=== PATIENT | male | born 1960 | race Hispanic/Latino ===

== ENCOUNTER 2018-02-13 15:34 | Inpatient (IN) | payer MEDICARE ==
[~2018-02-13] VITALS: Ht 175.3 cm; Wt 92.0 kg
[2018-02-13] MEDS ORDERED: ONDANSETRON HCL MDV 20ML 2 MG/ML VIAL ONE (15:44)
[2018-02-13] MEDS ORDERED: SODIUM CHLORIDE 0.9% 1000ML 1,000 ML IV ONE ×2 (15:44→19:49)
[2018-02-13 16:08] LABS: BASOPHILS % (AUTO) 0.6 % (0.0-5.0); EOSINOPHILS % (AUTO) 0.9 % (0.0-8.0); LYMPHOCYTES % (AUTO) 13.3 % (21.0-51.0); MEAN CORPUSCULAR HEMOGLOBIN 33.1 pg (27.0-33.0); MEAN CORPUSCULAR HGB CONC 34.8 g/dL (32.0-36.0); MEAN CORPUSCULAR VOLUME 95.3 fL (79-99); MONOCYTES % (AUTO) 5.6 % (3.0-13.0); NEUTROPHILS % (AUTO) 79.6 % (40.0-77.0); PLATELET COUNT (AUTO) 225 K/uL (130-400); RED BLOOD CELL COUNT(AUTO) 5.04 MIL/uL (4.50-6.20); RED CELL DISTRIBUTION WIDTH 12.7 % (11.0-15.5); WHITE BLOOD COUNT (AUTO) 12.9 K/uL (4.8-10.8)
[2018-02-13 16:14] LABS: INR 0.9 (0.85-1.15); PARTIAL THROMBOPLASTIN TIME 24.7 SEC (26.3-35.5); PROTHROMBIN TIME 9.5 SEC (9.6-11.6)
[2018-02-13 16:27] LABS: ALBUMIN 3.8 g/dL (3.5-5.0); BILIRUBIN,DIRECT 0.1 mg/dL (0.0-0.3); BILIRUBIN,TOTAL 0.7 mg/dL (0.2-1.0); CREATININE 1.6 mg/dL (0.5-1.5); TOTAL PROTEIN, SERUM 8.2 g/dL (6.0-8.3)
[2018-02-13] MEDS ORDERED: INSULIN HUMULIN R 100 UNIT/ML 3ML ONE ×2 (17:04→20:37)
[2018-02-13 17:16] LABS: APPEARANCE,URINE Clear (CLEAR); BILIRUBIN,URINE Negative (NEGATIVE); COLOR,URINE Yellow (YELLOW); GLUCOSE, URINE (UA) >=1000 mg/dL (NEGATIVE); KETONES,URINE Negative (NEGATIVE); LEUKOCYTE ESTERASE ,URINE Negative (NEGATIVE); NITRATE,URINE Negative (NEGATIVE); OCCULT BLOOD,URINE Small (NEGATIVE); PH,URINE 5.5 (5.0-8.0); PROTEIN,URINE POS 2+ (NEGATIVE); UROBILINOGEN,URINE 0.2 mg/dL (0.2-1.0)
[2018-02-13 17:28] LABS: AMPHET/METH SCREEN,URINE NEGATIVE (NEGATIVE); BARBITURATE SCREEN, URINE NEGATIVE (NEGATIVE); BENZODIAZEPINES SCREEN,URINE NEGATIVE (NEGATIVE); CANNABINOID SCREEN,URINE NEGATIVE (NEGATIVE); COCAINE SCREEN,URINE NEGATIVE (NEGATIVE); OPIATE SCREEN,URINE NEGATIVE (NEGATIVE); PHENCYCLIDINE SCREEN,URINE NEGATIVE (NEGATIVE)
[2018-02-13 17:36] LABS: BACTERIA,URINE Rare /HPF (None Seen); SQUAMOUS EPITHELIAL CELL,UR Rare /HPF (0-2); WBC,URINE 0-1 /HPF (0-1)
[2018-02-13] MEDS ORDERED: PROMETHAZINE HCL 25 MG/ML 1ML AMPULE IM ONE (19:49)
[2018-02-13] MEDS ORDERED: METOCLOPRAMIDE 10 MG/2 ML VIAL IVP SCH (21:15)
[2018-02-13] MEDS ORDERED: CEFTRIAXONE 1GM/D5W 50ML 50 ML IV SCH (21:15)
[2018-02-13] MEDS ORDERED: HYDRALAZINE HCL 20 MG/ML VIAL IV SCH (21:15)
[2018-02-13] MEDS ORDERED: DICYCLOMINE HCL 20 MG TAB PO SCH (21:30)
[2018-02-13] MEDS ORDERED: HYDRALAZINE HCL 20 MG/ML VIAL ONE (21:45)
[2018-02-13] MEDS ORDERED: CEFTRIAXONE SODIUM 1 GM IVP SCH (22:00)
[2018-02-13 22:55] VITALS: BP 150/87
[2018-02-13] MEDS ORDERED: HUM10VIA6 SQ ×3 (22:58)
[2018-02-13] MEDS ORDERED: AEC81 PO (22:58)
[2018-02-13] MEDS ORDERED: FURO20TA4 PO (22:58)
[2018-02-13] MEDS ORDERED: CARV6.25 PO (22:58)
[2018-02-13] MEDS ORDERED: OMEP20CA10 PO (22:58)
[2018-02-13] MEDS ORDERED: LOSA25TA21 PO (22:58)
[2018-02-13] MEDS ORDERED: ATOR40TA71 PO (22:58)
[2018-02-13 23:57] VITALS: BP 152/88
[2018-02-14] MEDS ORDERED: PHARMACY COMMUNICATION MISC SCH (00:15)
[2018-02-14] MEDS ORDERED: GLUCAGON 1MG KIT 1 MG ML IM PRN (00:30)
[2018-02-14] MEDS ORDERED: POTASSIUM CHLORIDE 20 MEQ ERTAB PO PRN (00:30)
[2018-02-14] MEDS ORDERED: LIDOCAINE HCL-MPF 1% 2ML VIAL IJ PRN (00:30)
[2018-02-14] MEDS: SODIUM CHLORIDE 0.9% 1000ML 1,000 ML IV SCH ×2 (00:30→11:29)
[2018-02-14] MEDS ORDERED: POTASSIUM CHLORIDE 10% ELIXIR 20 MEQ/15 ML UDCUP PO PRN (00:30)
[2018-02-14] MEDS ORDERED: POTASSIUM CHLORIDE 20MEQ/100ML 100 ML IV PRN (00:30)
[2018-02-14] MEDS ORDERED: DEXTROSE 50%-WATER 50 ML DISP.SYRIN IV PRN (00:30)
[2018-02-14] MEDS ORDERED: ONDANSETRON HCL MDV 20ML 2 MG/ML VIAL IVP PRN (00:30)
[2018-02-14 04:00] VITALS: BP 122/71
[2018-02-14 06:20] LABS: HEMATOCRIT 44.3 % (42-54); MEAN CORPUSCULAR HEMOGLOBIN 33.1 pg (27.0-33.0); MEAN CORPUSCULAR HGB CONC 34.4 g/dL (32.0-36.0); MEAN CORPUSCULAR VOLUME 96.2 fL (79-99); PLATELET COUNT (AUTO) 205 K/uL (130-400); RED BLOOD CELL COUNT(AUTO) 4.61 MIL/uL (4.50-6.20); RED CELL DISTRIBUTION WIDTH 12.8 % (11.0-15.5); WHITE BLOOD COUNT (AUTO) 13.8 K/uL (4.8-10.8)
[2018-02-14 06:39] LABS: CREATININE 1.4 mg/dL (0.5-1.5); POTASSIUM 4.2 mmol/L (3.5-5.1)
[2018-02-14] MEDS: INSULIN HUMULIN R 100 UNIT/ML 3ML SQ SCH ×3 (06:39→16:30)
[2018-02-14 07:00] LABS: HEMOGLOBIN A1C 8.7 % (4.0-6.0)
[2018-02-14 07:30] VITALS: BP 133/81
[2018-02-14] MEDS ORDERED: INSULIN HUMULIN 70/30 100 UNIT/ML 3ML SQ SCH ×3 (07:30→16:30)
[2018-02-14] MEDS ORDERED: ASPIRIN 81 MG EC TAB PO SCH (09:00)
[2018-02-14] MEDS ORDERED: LOSARTAN 50 MG TABLET PO SCH (09:00)
[2018-02-14] MEDS ORDERED: FUROSEMIDE 20 MG TABLET PO SCH (09:00)
[2018-02-14] MEDS ORDERED: CARVEDILOL 6.25 MG TABLET PO SCH (09:00)
[2018-02-14] MEDS ORDERED: ENOXAPARIN SODIUM 40 MG/0.4 ML SYRINGE SQ SCH (09:00)
[2018-02-14 11:00] VITALS: BP_SYST 130; BP_SYST 131; BP_DIAS 70; BP_DIAS 73
[2018-02-14] MEDS ORDERED: LEVO250T2 PO (15:17)
[2018-02-14] MEDS ORDERED: INSLAN SQ (15:17)
[2018-02-14 16:00] VITALS: BP 130/73
[2018-02-14] MEDS ORDERED: ATORVASTATIN CALCIUM 40 MG TABLET PO SCH (21:00)
== END 2018-02-14 18:50 | disposition home or self-care (01) | DRG 638 ==
LOC: EDH 15:34 → EDHIP 19:45 → 4BH 22:11
PROVIDERS: ADMIT Internal Medicine Nephrology; ATTEND Internal Medicine Nephrology
DX: E11.65 Type 2 diabetes mellitus with hyperglycemia (principal); E87.1 Hypo-osmolality and hyponatremia; I11.0 Hypertensive heart disease with heart failure; I50.9 Heart failure, unspecified; E86.0 Dehydration; R11.2 Nausea with vomiting, unspecified; E78.5 Hyperlipidemia, unspecified; K21.9 Gastro-esophageal reflux disease without esophagitis; Z17.1 Estrogen receptor negative status [ER-]; Z79.4 Long term (current) use of insulin; Z95.0 Presence of cardiac pacemaker; Z89.412 Acquired absence of left great toe
CPT/HCPCS: 36415; 36600; 71045; 74176; 80048; 80061; 80076; 80305; 81001; 82550; 82948; 83036; 83690; 84484; 85025; 85027; 85610; 85730; 93005; A4218; J0360; J0696; J1650; J1815; J2550; J2765; J7030